=== PATIENT | male | born 1990 | race Caucasian/White ===

== ENCOUNTER → 2023-11-28 | Outpatient (CLI) | payer BC, SELFPAY ==
--- NOTE | 2023-11-28 15:25 | US_ITS ---
STUDY: SCROTUM ULTRASOUND REASON FOR EXAM: Male, 33 years old. right testicular mass, ?left hydroceole TECHNIQUE: Ultrasound evaluation of the scrotum was performed with color Doppler and static anderson-scale imaging. COMPARISON: None. FINDINGS: RIGHT TESTICLE INTRATESTICULAR: There is a normal size of the right testicle. The right testicle measures 4.2 x 2.9 x 2.3 cm. There is a homogenous echotexture with a single microcalcification. There is normal arterial and normal venous vascularity. There is no demonstrated right testicular mass or cyst. EXTRATESTICULAR: The epididymis is normal in size. The epididymis head measures 1.3 x 1.3 x 0.8 cm. There is normal vascularity of the epididymis. Within the right epididymis there are 2 round anechoic structures compatible with epididymal cysts measuring 0.5 x 0.4 x 0.4 cm and 0.4 x 0.4 x 0.3 cm. There is a mild to moderate hydrocele. There is no demonstrated varicocele. There is no demonstrated extratesticular mass or cyst. The right scrotal wall is 3 mm. LEFT TESTICLE INTRATESTICULAR: There is a normal size of the left testicle. The left testicle measures 4.4 x 2.6 x 2.5 cm. There is a homogenous echotexture with a single microcalcification. There is normal arterial and normal venous vascularity. There is no demonstrated left testicular mass or cyst. EXTRATESTICULAR: The epididymis is normal in size. The epididymis head measures 0.8 x 0.8 x 0.9 cm. There is normal vascularity of the epididymis. There is no demonstrated epididymal cystic structure. There is a small hydrocele. There is no demonstrated varicocele. There is no demonstrated extratesticular mass or cyst. The left scrotal wall is 4 mm. US/Testicular with Arterial Flow IMPRESSION: Minimal bilateral microlithiasis otherwise no evidence of intratesticular mass. Normal symmetrical color flow within the bilateral testes. Note to be made that microlithiasis is associated with increased incidence of neoplasm such as seminoma. Follow-up ultrasound recommended to document stability. Mild bilateral hydroceles, right larger than left. Right-sided epididymal cysts as described, remainder of the exam unremarkable. Electronically Signed: Archana Ji MD at 17:49 EST ,
== END | disposition home or self-care (01) ==
LOC: US 15:25
PROVIDERS: PCP Family Medicine; Referring Provider Family Medicine; Visit Provider Family Medicine
DX: N50.89 Other specified disorders of the male genital organs (principal)
CPT/HCPCS: 76870; 93976